=== PATIENT | male | born 1945 | race Caucasian/White ===

== ENCOUNTER 2017-01-06 07:16 | Day surgery (SDC) | payer MEDICARE, OTHER ==
--- NOTE | ~2017-01-06 | EGD ---
EGD REPORT [facility] [address] [place] [address] NAME: SANDI GRIFFITH : [birth year] STATUS : REG [facility] [place] PAT#: [id number] AGE: 71 ADM/REG DATE : 01/06/17 MR#: [id number] REPORT SERV DATE: 01/06/17 DICTATED BY: MARK STEINBERG DATE: 01/06/17 REPORT STATUS : Draft [facility]: [facility] DATE: 01/06/17 Endoscopy Center Patient Name: Sandi Griffith Date of : 1945 Attending MD: MARK STEINBERG MD Procedure Date No Time: 01/06/2017 Procedure: Colonoscopy Indications: Iron deficiency anemia, Last colonoscopy: 2006 Referring MD: TAI PRINCE Medicines: See the Anesthesia note for documentation of the administered medications Complications: No immediate complications. Procedure: Pre-Anesthesia Assessment: - ASA Grade Assessment: III - A patient with severe systemic disease. After I obtained informed consent, the scope was passed under direct vision. Throughout the procedure, the patient's blood pressure, pulse, and oxygen saturations were monitored continuously. The CF [id number] was introduced through the anus and advanced to the terminal ileum, with identification of the appendiceal orifice and IC valve. The colonoscopy was performed without difficulty. The patient tolerated the procedure well. The quality of the bowel preparation was adequate. Findings: The perianal and digital rectal examinations were normal. The terminal ileum appeared normal. Internal hemorrhoids were found during retroflexion and were small. Diverticula were found in the sigmoid colon. A sessile polyp was found in the transverse colon. The polyp was small in size. The polyp was removed with a cold biopsy forceps. Resection and retrieval were complete. Impression: - The examined portion of the ileum was normal. - Internal hemorrhoids. - Diverticulosis in the sigmoid colon. - One small polyp in the transverse colon. Resected and retrieved. Recommendation: - Patient has a contact number available for emergencies. The signs and symptoms of potential delayed complications were discussed with the patient. Return to normal activities tomorrow. Written discharge instructions were provided to the patient. EGD REPORT [address] [address] NAME: SANDI GRIFFITH : [birth year] STATUS : REG [facility]#: [id number] AGE: 71 ADM/REG DATE : 01/06/17 MR#: [id number] REPORT SERV DATE: 01/06/17 DICTATED BY: MARK STEINBERG DATE: 01/06/17 REPORT STATUS : Draft TRANSCRIBED BY: [employer] DATE: 01/06/17 - Regular diet. - Continue present medications. - Repeat colonoscopy for surveillance based on pathology results. - FOR YOUR BIOPSY RESULTS: Please go to [email or web address] and register to receive your results via the portal. Your biopsy results will be posted there in about 7 to 10 days. IF you do not see result in 10 days, call office. Procedure Code(s): --- Professional --- 12403, Colonoscopy, flexible, proximal to splenic flexure; with biopsy, single or multiple Diagnosis Code(s): --- Professional --- K64.8, Other hemorrhoids K57.30, Diverticulosis of large intestine without perforation or abscess without bleeding D12.3, Benign neoplasm of transverse colon D50.9, Iron deficiency anemia, unspecified CPT copyright 2013 [employer]. All rights reserved. The codes documented in this report are preliminary and upon keg varnisher review may be revised to meet current compliance requirements. Mark Steinberg MD MARK STEINBERG MD 01/06/2017 9:01 AM This report has been signed electronically. Number of Addenda: 0 Note Initiated On: 01/06/2017 8:30 AM Scope Withdrawal Time 0 hours 8 minutes 9 seconds [id number] [place] [id number]
--- NOTE | ~2017-01-06 | EGD ---
EGD REPORT [facility] [address] [place] [address] NAME: SANDI GRIFFITH : [birth year] STATUS : REG [facility]#: [id number] AGE: 71 ADM/REG DATE : 01/06/17 MR#: [id number] REPORT SERV DATE: 01/06/17 DICTATED BY: MARK STEINBERG DATE: 01/06/17 REPORT STATUS : Draft [facility]: [facility] DATE: 01/06/17 Endoscopy Center Patient Name: Sandi Griffith Date of : 1945 Attending MD: MARK STEINBERG MD Procedure Date No Time: 01/06/2017 Procedure: Upper GI endoscopy Indications: Iron deficiency anemia Referring MD: TIA PRINCE Medicines: See the Anesthesia note for documentation of the administered medications Complications: No immediate complications. Procedure: Pre-Anesthesia Assessment: - ASA Grade Assessment: III - A patient with severe systemic disease. After obtaining informed consent, the endoscope was passed under direct vision. Throughout the procedure, the patient's blood pressure, pulse, and oxygen saturations were monitored continuously. The GIF [id number] was introduced through the mouth, and advanced to the second part of duodenum. The upper GI endoscopy was accomplished without difficulty. The patient tolerated the procedure well. Findings: The 2nd part of the duodenum was normal. Biopsies were taken with a cold forceps for histology. Mild inflammation was found in the gastric body. Biopsies were taken with a cold forceps for histology. The cardia and gastric fundus were normal on retroflexion. A small hiatus hernia was present. One superficial esophageal ulcer was found in distal esophagus. The lesion was 5 mm in largest dimension. Biopsies were taken with a cold forceps for histology. Impression: - Normal 2nd part of the duodenum. Biopsied. - Gastritis. Biopsied. - Hiatus hernia. - Esophageal ulcer. Biopsied. Recommendation: - Patient has a contact number available for emergencies. The signs and symptoms of potential delayed complications were discussed with the patient. Return to normal activities tomorrow. Written discharge instructions were provided to the patient. EGD REPORT [address] [place]. [address] NAME: SANDI GRIFFITH : [birth year] STATUS : REG [facility]#: [id number] AGE: 71 ADM/REG DATE : 01/06/17 MR#: [id number] REPORT SERV DATE: 01/06/17 DICTATED BY: MARK STEINBERG DATE: 01/06/17 REPORT STATUS : Draft TRANSCRIBED BY: [employer] DATE: 01/06/17 - Regular diet. - Continue present medications. - FOR YOUR BIOPSY RESULTS: Please go to [email or web address] and register to receive your results via the portal. Your biopsy results will be posted there in about 7 to 10 days. IF you do not see result in 10 days, call office. - Follow up with Dr Steinberg or his nurse practitioner in 6 weeks - Start Protonix 40mg every am Procedure Code(s): --- Professional --- 16034, Esophagogastroduodenoscopy, flexible, transoral; with biopsy, single or multiple Diagnosis Code(s): --- Professional --- K29.70, Gastritis, unspecified, without bleeding K44.9, Diaphragmatic hernia without obstruction or gangrene K22.10, Ulcer of esophagus without bleeding D50.9, Iron deficiency anemia, unspecified CPT copyright 2013 [employer]. All rights reserved. The codes documented in this report are preliminary and upon invoice coder review may be revised to meet current compliance requirements. Mark Steinberg MD MARK STEINBERG MD 01/06/2017 8:59 AM This report has been signed electronically. Number of Addenda: 0 Note Initiated On: 01/06/2017 8:36 AM Scope Withdrawal Time 0 hours 0 minutes 0 seconds [id number] [place] [id number]
[~2017-01-06 07:16] MED LIST: ALTACE10 MG PO; APRES25 PO; CARDURA XL8 MG PO; CYANO1000T PO; FLONASE NAS; HALF81 PO; HYDROCHLOROT25 MG PO; KLOR-CON M2020 MEQ PO; L40 PO; NASONEX NAS; NORV10 PO; PRAVACHOL40 MG PO; REQUIP1 PO; RESTASIS OPH; ZYRTEC ALLGY10 MG PO
[2017-01-06 09:25] LABS: BASOPHILS 0.6 %; BASOPHILS ABSOLUTE 0.03 10/3/uL (0.0-0.16); EOSINOPHILS 2.6 %; EOSINOPHILS ABSOLUTE 0.13 10/3/uL (0.0-0.53); HEMOGLOBIN 8.5 g/dL (13.6-17.8); IMMATURE GRANULOCYTES 0.2 %; IMMATURE GRANULOCYTES ABSOLUTE 0.01 10/3/uL (0.0-0.11); LYMPHOCYTES 20.7 %; LYMPHOCYTES ABSOLUTE 1.03 10/3/uL (0.67-4.30); MEAN CORPUS HGB CONC 32.3 g/dL (32.0-36.0); MEAN CORPUSCULAR HEMOGLOB 26.8 pg (26.0-34.0); MEAN PLATELET VOLUME 9.2 fL (9.2-13.0); MONOCYTES 15.7 %; MONOCYTES ABSOLUTE 0.78 10/3/uL (0.21-1.20); NEUTROPHILS 60.2 %; PLATELET COUNT 255 10/3/uL (150-400); RBC DISTRIBUTION WIDTH 15.8 % (12.0-16.0); RED CELL COUNT 3.17 10/6/uL (4.7-6.1)
[2017-01-06 09:28] LABS: HEMATOCRIT 26.3 % (40.0-51.0); MANUAL DIFF NO %
[2017-04-27] MEDS ORDERED: REFRES1 OPH (14:20)
[2017-04-27] MEDS ORDERED: FISH-EPA1000 MG PO (14:20)
== END 2017-01-06 23:59 | disposition home or self-care (01) ==
LOC: DMU 07:16
PROVIDERS: Internal Medicine Gastroenterology
PROC: 0DB38ZX Excision of Lower Esophagus, Via Natural or Artificial Opening Endoscopic, Diagnostic (ICD-10-PCS; 2017-01-06)
PROC: 0DB98ZX Excision of Duodenum, Via Natural or Artificial Opening Endoscopic, Diagnostic (ICD-10-PCS; 2017-01-06)
PROC: 0DBL8ZZ Excision of Transverse Colon, Via Natural or Artificial Opening Endoscopic (ICD-10-PCS; principal; 2017-01-06 08:30)
PROC: 0DB68ZX Excision of Stomach, Via Natural or Artificial Opening Endoscopic, Diagnostic (ICD-10-PCS; 2017-01-06 08:30)
DX: D12.3 Benign neoplasm of transverse colon (principal); K64.8 Other hemorrhoids; K57.30 Diverticulosis of large intestine without perforation or abscess without bleeding; D50.9 Iron deficiency anemia, unspecified; K44.9 Diaphragmatic hernia without obstruction or gangrene; K22.10 Ulcer of esophagus without bleeding; I10 Essential (primary) hypertension; G47.33 Obstructive sleep apnea (adult) (pediatric); E78.00 Pure hypercholesterolemia, unspecified; M46.98 Unspecified inflammatory spondylopathy, sacral and sacrococcygeal region; Z87.01 Personal history of pneumonia (recurrent); Z98.41 Cataract extraction status, right eye; Z90.89 Acquired absence of other organs; Z98.42 Cataract extraction status, left eye; Z96.1 Presence of intraocular lens; Z88.0 Allergy status to penicillin; Z79.899 Other long term (current) drug therapy; Z79.82 Long term (current) use of aspirin; Z79.51 Long term (current) use of inhaled steroids
CPT/HCPCS: 82607; 82728; 82746; 83550; 85025; 88305; 88312